=== PATIENT | male | born 1980 | race Two or more races ===

== ENCOUNTER 2023-12-29 23:24 | Inpatient (IN) | payer MEDICAID, OTHER ==
[~2023-12-29] VITALS: Ht 175.3 cm; Wt 118.6 kg
[2023-12-30] VITALS (7 sets, daily range): BP systolic 158–198; BP diastolic 99–118; PULSE 77–86; RESP 14–20; TEMP 97.8–98.6; O2SAT 94–98
[2023-12-30 00:10] LABS: Eosinophils # (auto) 0.2 10 ^3/uL (0-0.8); Hemoglobin 11.3 g/dL (13.5-17.5); Lymphocytes # (auto) 1.7 10 ^3/uL (0.4-5.4); Monocytes # (auto) 0.5 10 ^3/uL (0-1.3)
[2023-12-30 00:12] LABS: Basophils # (auto) 0 10 ^3/uL (0-0.2); Basophils % (auto) 0.6 % (0.0-2.0); Eosinophils % (auto) 2.6 % (0.0-7.0); Hematocrit 36.3 % (41.0-53.0); Lymphocytes % (auto) 21.4 % (10.0-50.0); Mean Corpuscular Hemoglobin 19.7 pg (28.0-32.0); Mean Corpuscular Hgb Conc. 31.1 g/dL (32.0-36.0); Mean Corpuscular Volume 63.3 fL (80.0-100.0); Monocytes % (auto) 6.9 % (0.0-12.0); Neutrophils # (auto) 5.4 10 ^3/uL (1.6-8.6); Neutrophils % (auto) 68.5 % (37.0-80.0); Platelet Count (auto) 138 10^3/uL (140-450); Red Blood Cells 5.73 10^6/uL (4.5-5.90); White Blood Cell 7.8 10^3/uL (4.4-10.8)
[2023-12-30 00:26] LABS: Red Cell Distribution Width 23.3 % (11.8-14.3)
[2023-12-30 00:27] LABS: Alanine Aminotransferase 18 U/L (7-40); Albumin 3.1 g/dL (3.2-4.8); Alkaline Phosphatase 131 U/L (46-116); Anion Gap 7 (5-15); Aspartate Aminotransferase 26 U/L (13-40); BUN/Creatinine Ratio 18.2 (10.0-20.0); Blood Urea Nitrogen 22 mg/dL (9-23); Calcium 8.2 mg/dL (8.7-10.4); Carbon Dioxide 26 mmol/L (20-31); Chloride 110 mmol/L (98-107); Glucose 123 mg/dL (74-106); Sodium 143 mmol/L (136-145); Total Protein 5.6 g/dL (5.7-8.2)
[2023-12-30 01:18] LABS: Platelet Estimate Adequate
[2023-12-30 01:19] LABS: Anisocytosis Slight; Hypochromia Marked
[2023-12-30] MEDS: cefTRIAXone 1GM/50ML D5W 50 ML IV ONE (03:29)
[2023-12-30 06:27] LABS: Urine Bacteria MANY /hpf (None Seen); Urine Blood 3+ /uL (Negative); Urine Clarity Ex.Turbid (Clear); Urine Color Brown (Yellow); Urine Protein, UAD 3+ (Negative); Urine Specific Gravity 1.021 (1.001-1.035); Urine Urobilinogen 2 mg/dL (Negative); Urine WBC 573 /hpf (0 - 3); Urine WBC Clumps PRESENT /hpf (None Seen)
[2023-12-30] MEDS ORDERED: ACETAMINOPHEN 325 MG TAB PO PRN (07:00)
[2023-12-30] MEDS ORDERED: TEMAZEPAM 15 MG CAP PO PRN (07:00)
[2023-12-30] MEDS: FUROSEMIDE 20 MG/2 ML VIAL IV ONE (07:36)
[2023-12-30] MEDS: ALBUMIN 25% 50 ML IV ONE (07:36)
[2023-12-30] MEDS: levoFLOXacin 500MG 100 ML IV SCH (10:37)
[2023-12-30] MEDS ORDERED: LEVO50TA7 PO (12:24)
[2023-12-30] MEDS ORDERED: [UNRECOGNIZED DRUG - CODE] PO (12:24)
[2023-12-30] MEDS: amLODIPine BESYLATE 5 MG TAB PO ONE (16:16)
[2023-12-30] MEDS: SODIUM CHLORIDE 0.9% 1,000 ML IV SCH (16:17)
[2023-12-30] MEDS: FERROUS SULFATE 325mg EC TAB PO SCH (17:53)
[2023-12-30] MEDS: PIPERACILLIN-TAZOB 3.375GM 100 ML IV SCH (21:51)
[2023-12-31] VITALS (8 sets, daily range): BP systolic 139–166; BP diastolic 87–98; PULSE 68–85; RESP 16–19; TEMP 97.6–98.6; O2SAT 94–100
[2023-12-31] MEDS: IOHEXOL 350 MG/ML 100ML IJ ONE (00:30)
[2023-12-31] MEDS: LEVOTHYROXINE SODIUM 25 MCG TAB PO SCH (05:29)
[2023-12-31] MEDS: HYDROcodone-ACET 5/325MG TAB PO PRN (05:32)
[2023-12-31 06:00] LABS: Basophils # (auto) 0 10 ^3/uL (0-0.2); Basophils % (auto) 0.6 % (0.0-2.0); Eosinophils # (auto) 0.2 10 ^3/uL (0-0.8); Eosinophils % (auto) 3.7 % (0.0-7.0); Hematocrit 32.8 % (41.0-53.0); Hemoglobin 10.3 g/dL (13.5-17.5); Lymphocytes # (auto) 1.7 10 ^3/uL (0.4-5.4); Lymphocytes % (auto) 29.9 % (10.0-50.0); Mean Corpuscular Hemoglobin 19.9 pg (28.0-32.0); Mean Corpuscular Hgb Conc. 31.5 g/dL (32.0-36.0); Mean Corpuscular Volume 63.1 fL (80.0-100.0); Monocytes # (auto) 0.3 10 ^3/uL (0-1.3); Monocytes % (auto) 5.9 % (0.0-12.0); Neutrophils # (auto) 3.4 10 ^3/uL (1.6-8.6); Neutrophils % (auto) 59.9 % (37.0-80.0); Nucleated Red Blood Cells % 0.1 %; Platelet Count (auto) 134 10^3/uL (140-450); Red Cell Distribution Width 23.4 % (11.8-14.3); White Blood Cell 5.7 10^3/uL (4.4-10.8)
[2023-12-31] MEDS: amLODIPine BESYLATE 5 MG TAB PO SCH (09:02)
[2023-12-31] MEDS: ONDANSETRON HCL 4 MG/2 ML VIAL IV PRN (11:54)
[2023-12-31] MEDS ORDERED: CIPR500T4 PO (14:48)
[2024-01-01 01:00] VITALS: BP 136/85; PULSE 70; RESP 18; TEMP 97.9; O2SAT 98
[2024-01-01 05:00] VITALS: BP 126/83; PULSE 65; RESP 18; TEMP 98; O2SAT 98
[2024-01-01 08:00] VITALS: BP 139/94; PULSE 77; RESP 18; TEMP 98.1; O2SAT 95
[2024-01-01] MEDS ORDERED: DOCUSATE SOD 100 MG CAP PO PRN (10:30)
[2024-01-01 12:00] VITALS: BP 139/90; PULSE 74; RESP 20; TEMP 97.8; O2SAT 96
[2024-01-01 16:00] VITALS: BP 143/99; PULSE 74; RESP 20; TEMP 98; O2SAT 95
[2024-01-01 21:00] VITALS: BP 135/85; PULSE 86; RESP 18; TEMP 98; O2SAT 96
[2024-01-01] MEDS ORDERED: LORazepam 2MG/ML-1ML VIAL IV PRN (22:15)
[2024-01-01 23:17] LABS: INR 1.05 (0.9-1.15); Prothrombin Time 11.1 sec (9.3-11.8)
[2024-01-02 01:00] VITALS: BP 130/75; PULSE 85; RESP 19; TEMP 97.1; O2SAT 100
[2024-01-02 05:00] VITALS: BP 120/86; PULSE 75; RESP 20; TEMP 97.8; O2SAT 100
[2024-01-02 08:36] VITALS: BP 132/79; PULSE 66; RESP 18; TEMP 98.5; O2SAT 97
[2024-01-02 13:00] VITALS: BP 141/87; PULSE 84; RESP 17; TEMP 98.5; O2SAT 96
[2024-01-02 17:00] VITALS: BP 143/86; PULSE 80; RESP 19; TEMP 98.2; O2SAT 94
[2024-01-02 21:00] VITALS: BP 143/95; PULSE 86; RESP 19; TEMP 98.8; O2SAT 95
[2024-01-03 01:00] VITALS: BP 147/90; PULSE 88; RESP 19; TEMP 97.6; O2SAT 96
[2024-01-03 05:00] VITALS: BP 138/78; PULSE 84; RESP 18; TEMP 98.9; O2SAT 97
[2024-01-03 08:00] VITALS: PULSE 70; O2SAT 95
[2024-01-03 09:00] VITALS: BP 158/94; PULSE 70; RESP 16; TEMP 97.5; O2SAT 95
[2024-01-03 13:00] VITALS: BP 156/94; PULSE 88; RESP 18; TEMP 98.2; O2SAT 96
== END 2024-01-03 15:40 | disposition left against medical advice (07) | DRG 463 ==
LOC: ER 23:24 → OVERFLOW 12-30 06:54 → WEST WING 12-30 10:12
PROVIDERS: ADMIT Nurse Practitioner; ATTEND Nurse Practitioner Acute Care
DX: N13.6 Pyonephrosis (principal); C18.9 Malignant neoplasm of colon, unspecified; C78.7 Secondary malignant neoplasm of liver and intrahepatic bile duct; E88.09 Other disorders of plasma-protein metabolism, not elsewhere classified; G72.9 Myopathy, unspecified; G95.9 Disease of spinal cord, unspecified; G62.9 Polyneuropathy, unspecified; Z53.29 Procedure and treatment not carried out because of patient's decision for other reasons; E03.9 Hypothyroidism, unspecified; E66.9 Obesity, unspecified; I10 Essential (primary) hypertension; Z81.8 Family history of other mental and behavioral disorders; Z83.3 Family history of diabetes mellitus; Z68.38 Body mass index [BMI] 38.0-38.9, adult; Z79.899 Other long term (current) drug therapy
CPT/HCPCS: 36415; 70470; 71045; 72131; 72146; 72148; 74176; 80053; 81001; 82550; 83880; 85025; 85610; 87086; 93970; 97110; 97116; 97163; 97530; G0378; J1956; J2405; J2543